=== PATIENT | male | born 1945 | race Caucasian/White ===

== ENCOUNTER → 2017-07-05 | Outpatient (CLI) | payer OTHER ==
[~2017-07-05] MED LIST: Ecotrin PO; LANSOPRAZOLE30 MG PO; LIPITOR10 MG; LIPITOR10 MG PO; LISINOPRIL20 MG PO; METAXALONE800 MG PO; NORVASC5 MG PO
== END | disposition home or self-care (01) ==
LOC: RAD 13:55
PROC: 3E0R3KZ Introduction of Other Diagnostic Substance into Spinal Canal, Percutaneous Approach (ICD-10-PCS; principal; 2017-07-05)
DX: M47.896 Other spondylosis, lumbar region (principal); M48.07 Spinal stenosis, lumbosacral region
CPT/HCPCS: 62304; 72132